=== PATIENT | female | born 2000 | race Caucasian/White ===

== ENCOUNTER 2022-07-18 08:05 | Emergency (ER) | payer BC, SELFPAY ==
[2022-07-18 08:10] VITALS: BP 132/86; PULSE 101; RESP 20; TEMP 36.6; O2SAT 100; BMI 24.6
--- NOTE | 2022-07-18 08:44 | ED.NURSE ---
Attempted to get a hold of Dr Denson. [facility] at [phone]. ENT office at [phone]. Dr Denson in surgery until 1000. Advised to text or call his cell phone at [phone]. Dr Song left message.
[2022-07-18 09:46] LABS: Basophils Absolute Auto 0.02 K/uL (0.00-0.30); Basophils Percent Auto 0.3 % (0.0-3.0); Eosinophils Absolute Auto 0.13 K/uL (0.00-0.50); Eosinophils Percent Auto 1.7 % (0.0-7.0); Hematocrit 40.9 % (33.0-51.0); Hemoglobin* 13.7 gm/dL (12.0-16.0); Immature Granulocytes Abs Auto 0.06 K/uL (0.00-0.30); Immature Granulocytes Pct Auto 0.8 %; Lymphocytes Absolute Auto 1.64 K/uL (0.90-2.90); Mean Corpuscular HGB Conc 34 gm/dL (32-36); Mean Corpuscular Hemoglobin 31 pg (26-34); Mean Corpuscular Volume 92 fL (80-100); Monocytes Percent Auto 6.3 % (0.0-11.0); Neutrophils Absolute Auto 5.12 K/uL (1.7-7.0); Neutrophils Percent Auto 68.9 % (42.0-72.0); Platelet Count* 349 K/uL (140-440); RDW Coefficient of Variation % 11.7 % (11.5-15.5); Red Blood Count 4.44 m/uL (4.00-5.20); White Blood Count* 7.44 K/uL (4.50-11.00)
[2022-07-18] MEDS: TRANEXAMIC ACID 100 MG/ML INJ 1000 MG TOPICAL (09:46)
[2022-07-18 09:47] LABS: Slide Review Reflex No
--- NOTE | 2022-07-18 10:28 | ED.NURSE ---
Pt continuing to get neb from [facility]
--- NOTE | 2022-07-18 10:49 | RESP.RT ---
Pt given 1000mg/10ml Tranexamic Acid (TXA) via nebulization. Pt tolerated well. PT back of throat looked at pre and post treatment. No bleeding noted. BBS clear.
[2022-07-18 11:42] VITALS: BP 120/72; PULSE 89; RESP 20; TEMP 37; O2SAT 100
--- NOTE | 2022-07-18 14:09 | ED.GENADULT ---
HPI - General Adult General Chief complaint: Ear/Nose/Throat Problem Stated complaint: Throat bleeding after tonsil removal Time Seen by Provider: 07/18/22 08:08 Source: patient Mode of arrival: ambulatory Limitations: no limitations History of Present Illness HPI narrative: Patient is visiting a [employer] student, who was her friend, she underwent a tonsillectomy on the 12 of July, with Dr. Denson, she noted last night she had some bleeding from her left tonsillar bed, in comes in here, there is no nausea vomiting, she has no pre-existing history of anemia she is on no blood thinners. She thinks the bleeding may have stop. Related Data Home Medications Medication Instructions Recorded Confirmed hydrocodone 5 mg-acetaminophen 325 1 tab PO Q4-6H PRN 07/18/22 07/18/22 mg tablet Allergies Allergy/AdvReac Type Severity Reaction Status Date / Time No Known Drug Allergies Allergy Verified 07/18/22 08:16 Review of Systems Status of ROS: Reports: 10 or more systems reviewed and unremarkable except as noted in History and below PFSH PFSH Social History Smoking Status: Former smoker Do you use any of these nicotine containing products: None Second hand tobacco smoke exposure: No How often do you have a drink containing alcohol: 2-4 times a month How many standard drinks containing alcohol do you have on a typical day: 3 or 4 How often do you have six or more drinks on one occasion: Never AUDIT-C Alcohol total score: 3 Non-prescribed substance use: denies use Exam Narrative: Exam Narrative: Patient is seen in room 4 she is speaking to me normally, she does have some dried blood in her left tonsillar pillar, I do not see any actively be bleeding or oozing, little bit of lymphadenopathy left greater than right notable. Her neck is supple full range of motion, TMs are normal, chest is clear heart sounds are normal, her abdomen is soft. Was able to contact her ENT surgeon, who suggested nebulized TXA, this was done 1000 mg, recheck showed no evidence of any bleeding or bruising, and her surgeon who I communicated with thought she could be seen in the [facility], where he is. She is going to dry get someone to drive her over there,. Const: Vital Signs, click to edit/add: Vital Signs - 24 hr 07/18/22 08:10 07/18/22 11:42 Temperature 97.9 F 98.6 F Pulse Rate [Pulse Oximeter] 101 H 89 Respiratory Rate 20 20 Blood Pressure [Ri ght Upper Arm] 132/86 120/72 Pulse Oximetry 100 100 Oxygen Delivery Me thod Room Air Room Air Documenting provider has reviewed patient's vital signs: yes Course Vital Signs Vital signs: Initial Vital Signs Temperature 97.9 F 07/18/22 08:10 Temperature Source Temporal Artery Scan 07/18/22 08:10 Pulse Rate 101 H 07/18/22 08:10 Respiratory Rate 20 07/18/22 08:10 Blood Pressure 132/86 07/18/22 08:10 Blood Pressure Mean 101 07/18/22 08:10 Blood Pressure Position Sitting 07/18/22 08:10 Pulse Oximetry 100 07/18/22 08:10 Oxygen Delivery Method Room Air 07/18/22 08:10 Vital Signs Temperature 97.9 F 07/18/22 08:10 Pulse Rate 101 H 07/18/22 08:10 Respiratory Rate 20 07/18/22 08:10 Blood Pressure 132/86 07/18/22 08:10 Pulse Oximetry 100 07/18/22 08:10 Oxygen Delivery Method Room Air 07/18/22 08:10 Temperature 98.6 F 07/18/22 11:42 Pulse Rate 89 07/18/22 11:42 Respiratory Rate 20 07/18/22 11:42 Blood Pressure 120/72 07/18/22 11:42 Pulse Oximetry 100 07/18/22 11:42 Oxygen Delivery Method Room Air 07/18/22 11:42 Medical Decision Making Lab Data Lab results reviewed: Yes I reviewed the patient's lab results Labs: Lab Results 07/18/22 Range/Units 09:32 WBC 7.44 (4.50-11.00) K/uL RBC 4.44 (4.00-5.20) m/uL Hgb 13.7 (12.0-16.0) gm/dL Hct 40.9 (33.0-51.0) % MCV 92 (80-100) fL MCH 31 (26-34) pg MCHC 34 (32-36) gm/dL RDW Coeff of Brian 11.7 (11.5-15.5) % Plt Count 349 (140-440) K/uL Neut % (Auto) 68.9 (42.0-72.0) % Lymph % (Auto) 22.0 (20-44) % [place] % (Auto) 6.3 (0.0-11.0) % Eos % (Auto) 1.7 (0.0-7.0) % Baso % (Auto) 0.3 (0.0-3.0) % Neut # (Auto) 5.12 (1.7-7.0) K/uL Lymph # (Auto) 1.64 (0.90-2.90) K/uL [place] # (Auto) 0.50 (0.00-0.90) K/UL Eos # (Auto) 0.13 (0.00-0.50) K/uL Baso # (Auto) 0.02 (0.00-0.30) K/uL Discharge Plan Discharge Clinical Impression: Postoperative haemorrhage of tonsil Patient Disposition: Home w/ Parent or Adult Condition: Stable Additional Instructions: d/c followup with today in [place], please head over to the clinic. [id number] [address], [id number] [facility] [address] Activity Level: Light activity Discharge Diet: Clear Liquid Prescriptions: No Action hydrocodone-acetaminophen 5-325 mg tablet 1 tab PO Q4-6H PRN Follow Up/Referrals: Provider,Not a Local [Primary Care Provider] - Stand Alone Forms: MyHealth Info Instructions
== END 2022-07-18 11:43 | disposition home or self-care (01) ==
PROVIDERS: Emergency Provider Family Medicine
DX: J95.830 Postprocedural hemorrhage of a respiratory system organ or structure following a respiratory system procedure (principal)
CPT/HCPCS: 36415; 85025; 94640; 99283; 99284